=== PATIENT | male | born 2000 ===

== ENCOUNTER → 2025-08-02 10:40 | Outpatient (CLI) | payer OTHER, SELFPAY ==
--- NOTE | 2025-08-02 10:43 | DI.RAD.S_ITS ---
PROCEDURE: FL ARTHROGRAM SHOULDER LT INDICATIONS: L shoulder pain COMPARISON: Outside Facility, [facility], FL ARTHROGRAM SHOULDER LT, 04/18/2025, 13:30. TECHNIQUE: The indications, alternatives, benefits, risks, and complications of the procedure were explained to the patient. Written informed consent was obtained and placed in the chart. The shoulder was examined fluoroscopically and a site for needle placement chosen for entry into the glenohumeral joint from an anterior approach. The skin was prepped and draped in a sterile fashion, and 1% lidocaine infiltrated from skin down to joint capsule. A spinal needle was inserted into the glenohumeral joint, and a small amount of iodinated contrast media injected to confirm intra-articular placement of the needle tip. This was followed by approximately 12 mL dilute solution of a gadolinium containing MR contrast agent. The needle was removed and a dressing was applied. The patient was given postprocedural instructions and sent to the MR suite for MR imaging. FINDINGS: A single fluoroscopic spot image demonstrates intra-articular location of injected iodinated contrast. IMPRESSION: Successful fluoroscopically guided administration of dilute Gadolinium solution into the left shoulder joint for MR arthrogram. Dictated by: Benjie Sky M.D. on 08/02/2025 at 12:48 Approved by: Benjie Sky M.D. on 08/02/2025 at 13:43
--- NOTE | 2025-08-02 10:43 | DI.MRI.S_ITS ---
PROCEDURE: MR SHOULDER LT W CON INDICATIONS: L shoulder pain TECHNIQUE: After the administration of 12 mL of dilute intra-articular Gadolinium contrast, oblique coronal T1 and T2 spin echo with fat saturation, oblique sagittal T1 spin echo with and without fat saturation, oblique sagittal T2 fast spin echo with fat saturation, axial T1 spin echo with fat saturation through the shoulder. COMPARISON: Outside Facility, [facility], MRI SHOULDER ARTHROGRAM UNILATERAL, 04/18/2025, 14:29. FINDINGS: Quality: Adequate. Tendons: Rotator cuff tendons: Supraspinatus, infraspinatus, teres minor and subscapularis tendons are intact. Long head of biceps tendon: Intact. No dislocation. Muscles: No disproportionate fatty degeneration of the rotator cuff musculature. Acromioclavicular joint: Unremarkable. Glenohumeral joint: Labrum: Unremarkable. Cartilage: No focal defect. Fluid: Adequate distention by intra-articular contrast injection. Capsule: No pericapsular inflammation or scarring. Alignment: No dislocation. Bursa: Subacromial/subdeltoid bursa: Nondistended. Subcoracoid bursa: Nondistended. Bones: No fracture. IMPRESSION: Normal examination. Dictated by: Mauro Laird M.D. on 08/02/2025 at 15:36 Approved by: Mauro Laird M.D. on 08/02/2025 at 15:39
[2025-08-02] MEDS: SODIUM CHLORIDE 0.9 % 20 ML VIAL IV (11:23)
[2025-08-02] MEDS: LIDOCAINE 1% 20 ML INJ (11:23)
== END ==
LOC: RAD 10:42
PROVIDERS: PCP Physician Assistant; Referring Provider Orthopaedic Surgery; Visit Provider Orthopaedic Surgery
DX: M25.512 Pain in left shoulder (principal); G89.29 Other chronic pain
CPT/HCPCS: 23350; 73040; 73222; A9579; Q9967